=== PATIENT | female | born 1980 | race Caucasian/White ===

== ENCOUNTER 2016-06-18 13:09 | Emergency (ER) | payer OTHER ==
[~2016-06-18] VITALS: Ht 165.1 cm; Wt 86.2 kg
[~2016-06-18 13:09] MED LIST: VICODIN 5-3001 EACH PO
--- NOTE | 2016-06-18 15:49 | ED GI/GU/ABDOMINAL COMPLAINT ---
History of Present Illness General Chief Complaint: General Adult Stated Complaint: RECTAL BLEEDING Source: patient, old records Exam Limitations: no limitations Vital Signs & Intake/Output Vital Signs & Intake/Output Vital Signs Date Time Temp Pulse Resp B/P B/P Pulse O2 O2 Flow FiO2 Mean Ox Delivery Rate 06/18 1744 97.9 67 18 135/79 96 Room Air 06/18 1608 98 Room Air 06/18 1318 98.2 71 20 156/91 98 Room Air Allergies Coded Allergies: codeine (THROAT SWELLING 05/12/15) Reconcile Medications Hydrocodone/Acetaminophen (Vicodin 5-300 MG Tablet) 1 EACH TABLET 1 TAB PO Q6HR PRN PAIN Triage Note: PT PRESENTS TO ER C/O OF RECTAL BLEEDING POST BOWEL MOVEMENT. PT DENIES ANY RECTAL BLEEDING IN THE PAST AND ANY STRAINING. PT STATES SHE WAS USING THE BATHROOM AND WHEN SHE WENT TO CLEAN SHE SAW BLOOD IN THE TOILET AND ON HER TOILET PAPER. PT DENIES ABDOMINAL PAIN AND DIZZINESS. Triage Nurses Notes Reviewed? yes LMP (ages 10-50): 2 WEEKS AGO ? N Is pt currently ? No Onset: Abrupt Duration: day(s): (1), better Timing: single episode today (`) Quality/Severity: cramping Location: denies pain Radiation: no radiation Activities at Onset: none Prior Abdominal Problems: none No Modifying Factors: none Associated Symptoms: denies HPI: 35-year-old female presents emergency room after noticing blood on the toilet paper and bowel after she had a bowel movement. There was no diarrhea No history of similar episodes in the past no abdominal pain patient is otherwise without acute complaints. No dizziness lightheadedness. She denies any nausea vomiting no recent black or bloody stools she denies noting any blood in her stool prior to this episode. No chest pain shortness of breath. She is otherwise without any complaints at this time no recent trauma no vaginal bleeding or discharge no urinary complaints (SAI GOLDEN) Past History Travel History Traveled to [place] past 21 day No Medical History Any Pertinent Medical History? see below for history Hepatic: hepatitis B Surgical History Surgical History: non-contributory Psychosocial History What is your primary language Greek Tobacco Use: Quit >30 days ago Family History Hx Contributory? No (SAI GOLDEN) Review of Systems Review of Systems Constitutional: Reports: see HPI. All Other Systems: Reviewed and Negative Comments Review of systems: See HPI, All other systems negative. Constitutional, no chills no fever, no malaise HEENT: No visual changes no sore throat no congestion, Cardiovascular: No chest pain , no palpitation Skin: no rashes, no change in skin Respiratory: No dyspnea no cough no sputum GI: No nausea no vomiting, no diarrhea, no bloating/constipation : No dysuria Muscle skeletal: No joint pain, no joint swelling, no back pain, no neck pain, Neurologic: No numbness no headache Psych: No stress Heme/endocrine: No bruising no bleeding Immunology: No lymphadenopathy (SAI GOLDEN) Physical Exam Physical Exam General Appearance: well developed/nourished, no apparent distress, alert, awake Gastrointestinal: soft Comments: Well-developed well-nourished person in no acute distress HEENT: Normal EENT exam; PERRL, EOMI,. HEAD is atraumatic. moist mucous membranes. Neck: Supple, no lymphadenopathy, normal range of motion Back: Nontender, no CVA tenderness. Full range of motion Cardiovascular: Regular rate and rhythms no murmurs rubs Respiratory: No respiratory distress. Patient speaking in full complete sentences. Breath sounds clear to auscultation bilaterally: NO W/R/R Abdomen: Soft, nontender nondistended, no appreciable organomegaly. Normal bowel sounds. No rebound/guarding, RECTAL: Deferrred Extremity: No edema, full range of motion of extremities Neuro: Alert oriented x3, motor sensory normal. There were no obvious focal neurologic abnormalities. Skin: No appreciable rash on exposed skin, skin is warm and dry. Psych: Mood and affect is normal, memory and judgment is normal. Core Measures ACS in differential dx? No Severe Sepsis Present: No Septic Shock Present: No (SAI GOLDEN) Progress Differential Diagnosis: hemorrhoids, ischemic bowel, inflamm bowel dis, COLITIS, DIVERTICULITIS Plan of Care: Orders Procedure Date/time Status URINE 06/18 155 Complete COMPREHENSIVE METABOLIC PANEL 06/18 155 Complete CBC WITHOUT DIFFERENTIAL 06/18 1555 Complete Laboratory Tests 06/18/16 1604: Anion Gap 12, Estimated GFR > 60, BUN/Creatinine Ratio 12.9, Glucose 100 H, Calcium 9.5, Total Bilirubin 0.8, AST 21, ALT 35, Alkaline Phosphatase 62, Total Protein 7.8, Albumin 4.3, Globulin 3.5, Albumin/Globulin Ratio 1.2 06/18/16 1558: Urine Test NEGATIVE 06/18/161554: CBC w Diff NO MAN DIFF REQ, RBC 4.58, MCV 90.3, MCH 31.0, RDW 12.1, MPV 8.6, Gran % 61.5, Lymphocytes % 30.0, Monocytes % 6.0, Eosinophils % 1.2, Basophils % 1.3, Absolute Granulocytes 4.6, Absolute Lymphocytes 2.2, Absolute Monocytes 0.4 , Absolute Eosinophils 0.1, Absolute Basophils 0.1, PUBS MCHC 34.3 Patient denies any complaints at this time labs ordered CAT scan ordered (GERRY KATZ,SAI) Diagnostic Imaging: Viewed by Me: CT Scan. Discussed w/RAD: CT Scan. Radiology Impression: PATIENT: AKOSUA CHOU PRESENT AGE: 35 PATIENT ACCOUNT NO: [id number] : 81 LOCATION: [facility] ORDERING PHYSICIAN: SAI KATZ SERVICE DATE: 06/18/16 EXAM TYPE: CAT - CT ABD & PELVIS W/O IV CONTRAS EXAMINATION: CT ABDOMEN AND PELVIS WITHOUT CONTRAST CLINICAL INFORMATION: Colitis, diverticulitis COMPARISON: None TECHNIQUE: Multidetector volumetric imaging was performed from the superior aspect of the liver through the pubic symphysis. Sagittal and coronal reformatted images were obtained on the technologist's workstation. Findings; Lung bases are grossly clear. Upper abdomen Liver and spleen are within normal limits. The region the pancreas is unremarkable. The adrenal glands within normal limits. The kidneys are nonhydronephrotic. Normal morphology. There is no bulky adenopathy here. No free fluid. The bowel pattern is nonobstructing. In the pelvis the appendix is felt to be within normal limits. Bowel pattern appears normal. There is no free fluid. No adenopathy. IMPRESSION: No acute process. The bowel pattern is within normal limits. No suspicious fluid collection . DICTATED BY: JAY FORREST MD DATE/TIME DICTATED:06/18/161637 POT ANNEALER:RUSTY DATE/TIME TRANSCRIBED:06/18/161637 CONFIDENTIAL, DO NOT COPY WITHOUT APPROPRIATE AUTHORIZATION. <Electronically signed in Other Vendor System> SIGNED BY: JAY FORREST MD 04/26/17 1655 Initial ED EKG: none (SAI GOLDEN) Departure Departure Time of Disposition: 172 Disposition: HOME OR SELF CARE Condition: Stable Clinical Impression Primary Impression: Rectal bleeding Referrals: MATILDA CRISTOBAL,LISA Kaye PATIENT HAS NO PRIMARY CARE DR (PCP/Family) Additional Instructions: BLAND DIET, FOLLOW UP WITH ASSESSMENT TECHNICIAN DR GREY THIS WEEK. RETURN TO THE ER IF SYMPTOMS PERSIST OR ANY OTHER CONCERNS Departure Forms: Customer Survey General Discharge Information (SAI GOLDEN) PA/DIRECTOR NEWS Co-Sign Statement Statement: ED Attending supervision documentation- [] I saw and evaluated the patient. I have also reviewed all the pertinent lab results and diagnostic results. I agree with the findings and the plan of care as documented in the PA's/DIRECTOR NEWS's documentation. [X] I have reviewed the ED Record and agree with the PA's/DIRECTOR NEWS's documentation. [] Additions or exceptions (if any) to the PAs/DIRECTOR NEWS's note and plan are summarized below: [] (KYLE CRISTOBAL,MARGARITA)
[2016-06-18 16:20] LABS: ABSOLUTE BASOPHIL COUNT 0.1 /CUMM (0.0-0.2); ABSOLUTE EOSINOPHIL COUNT 0.1 /CUMM (0.0-0.7); ABSOLUTE GRANULOCYTE CT 4.6 /CUMM (1.4-6.5); ABSOLUTE LYMPH COUNT 2.2 /CUMM (1.2-3.4); ABSOLUTE MONOCYTE COUNT 0.4 /CUMM (0.10-0.60); BASOPHIL % 1.3 % (0.0-2.0); EOSINOPHIL % 1.2 % (0-5); GRANULOCYTE % 61.5 % (42.2-75.2); HEMATOCRIT 41.4 % (37-47); MEAN CORPUSCULAR HGB CONC 34.3 G/DL (33.0-37.0); MEAN CORPUSCULAR VOLUME 90.3 FL (81.0-99.0); MEAN PLATELET VOLUME 8.6 FL (7.4-10.4); PLATELET COUNT 264 /CUMM (130-400); RBC DISTRIBUTION WIDTH 12.1 % (11.5-14.5); RED BLOOD CELL CT 4.58 /CUMM (4.20-5.40); WHITE BLOOD CELL COUNT 7.4 /CUMM (4.8-10.8)
--- NOTE | 2016-06-18 16:55 | CT SCAN REPORT ---
EXAMINATION: CT ABDOMEN AND PELVIS WITHOUT CONTRAST CLINICAL INFORMATION: Colitis, diverticulitis COMPARISON: None TECHNIQUE: Multidetector volumetric imaging was performed from the superior aspect of the liver through the pubic symphysis. Sagittal and coronal reformatted images were obtained on the technologist's workstation. Findings; Lung bases are grossly clear. Upper abdomen Liver and spleen are within normal limits. The region the pancreas is unremarkable. The adrenal glands within normal limits. The kidneys are nonhydronephrotic. Normal morphology. There is no bulky adenopathy here. No free fluid. The bowel pattern is nonobstructing. In the pelvis the appendix is felt to be within normal limits. Bowel pattern appears normal. There is no free fluid. No adenopathy. IMPRESSION: No acute process. The bowel pattern is within normal limits. No suspicious fluid collection .
[2016-06-18 17:44] VITALS: BP 135/79
== END 2016-06-18 17:48 ==
LOC: ERH 13:09
PROVIDERS: Physician Assistant Medical
DX: K62.5 Hemorrhage of anus and rectum (principal)
CPT/HCPCS: 74176; 81025

== ENCOUNTER 2017-07-05 09:33 | Inpatient (IN) | payer OTHER ==
[~2017-07-05] VITALS: Ht 167.6 cm; Wt 105.7 kg
[~2017-07-05 09:33] MED LIST changes: +KEFLEX500 M1 PO
[2017-07-05 10:15] LABS: ABSOLUTE BASOPHIL COUNT 0.2 /CUMM (0.0-0.2); ABSOLUTE EOSINOPHIL COUNT 0.1 /CUMM (0.0-0.7); ABSOLUTE GRANULOCYTE CT 9.3 /CUMM (1.4-6.5); ABSOLUTE LYMPH COUNT 2.1 /CUMM (1.2-3.4); ABSOLUTE MONOCYTE COUNT 0.6 /CUMM (0.10-0.60); BASOPHIL % 1.3 % (0.0-2.0); EOSINOPHIL % 0.4 % (0-5); GRANULOCYTE % 76.1 % (42.2-75.2); HEMATOCRIT 42.4 % (37-47); MEAN CORPUSCULAR HGB 30.5 PG (27.0-31.0); MEAN CORPUSCULAR HGB CONC 33.2 G/DL (33.0-37.0); MEAN CORPUSCULAR VOLUME 91.9 FL (81.0-99.0); MEAN PLATELET VOLUME 9.1 FL (7.4-10.4); PLATELET COUNT 240 /CUMM (130-400); RBC DISTRIBUTION WIDTH 13.2 % (11.5-14.5); RED BLOOD CELL CT 4.61 /CUMM (4.20-5.40); WHITE BLOOD CELL COUNT 12.3 /CUMM (4.8-10.8)
--- NOTE | 2017-07-05 14:01 | History & Physical ---
General Information and HPI MD Statement: I have seen and personally examined AKOSUA CHOU and documented this H&P. Source of Information: patient, old records Exam Limitations: no limitations History of Present Illness: The patient is a 36 year old at 39 weeks and 4 days gestation who presented with a chief complaint of painful ctx and LOF at 9a, clr. No vb. +FM. GBS pos. AP care c/b Hep B carrier, nl LFTs, AMA. Pt desires pp tubal sterilization. Allergies/Medications Allergies: Coded Allergies: penicillin G (Intermediate, HIVES 07/05/17) codeine (THROAT SWELLING 05/12/15) Home Med list Cephalexin (Keflex) 500 MG CAPSULE 1 CAP PO BID cellulitis Hydrocodone/Acetaminophen (Vicodin 5-300 MG Tablet) 1 EACH TABLET 1 TAB PO Q6HR PRN PAIN Compliance With Home Meds: GOOD Past History director peoplesoft History : 4 Para: 2 Last Menstrual Period: 10/01/16 Estimated Delivery Date: 07/08/17 Past director peoplesoft History: non-contributory Past Pregnancies Past Pregnancies: 1 Date of Delivery: 07/20/03 Gestational Age: 36 Length of Labor: 13 Weight: 6 lb Type of Delivery: vaginal Anesthesia: epidural Place of Delivery: [facility] Complications: none Past Pregnancies: 2 Date of Delivery: 03/07/07 Gestational Age: 40 Length of Labor: 4 hr Weight: 6#5 Type of Delivery: vaginal Anesthesia: epid Place of Delivery: [place] Complications: none Medical History Neurological: NONE EENT: NONE Cardiovascular: NONE Respiratory: NONE Gastrointestinal: NONE Hepatic: NONE (carrier), hepatitis B Renal: NONE Musculoskeletal: NONE Psychiatric: NONE Endocrine: NONE Blood Disorders: NONE Cancer(s): NONE 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 No Contractions: q 3 #1 - FHR Baseline: 120 Category: 1 Estimated Weight: 3600 Presentation: vtx Patient for Induction? No Physical Exam: nad cta rrr abd soft nt gravid ext nt +1 b/l le ed Labs Blood Type & Rh: A pos Antibody Screen: neg Hct/Hgb & Platelets #1: 12.9/ 40, 270 Hct/Hgb & Platelets #2: 12.6/ 39.2, 242 Rubella: imm VDRL #1: neg VDRL #2: neg HbsAg: pos HIV #1: neg HIV #2 neg 1 Hr P Group B Strep: pos Initial Ultrasound: 11/28/16 siup 8+2 Anatomy Ultrasound: 02/24/17 nl cherry Genetic Testing: nl NT, nl cffdna Last 24 Hrs of Labs/Eleuterio: Laboratory Tests 07/05/17 1020: Urine Color Pending, Urine Clarity Pending, Urine pH Pending, Ur Specific [place] Pending, Urine Protein Pending, Urine Ketones Pending, Urine Nitrite Pending, Urine Bilirubin Pending, Urine Urobilinogen Pending, Ur Leukocyte Esterase Pending, Ur Microscopic SEDIMENT EXAMINED, Urine RBC Pending, Urine Hemoglobin Pending, Urine Glucose Pending 07/05/17 0940: CBC w Diff NO MAN DIFF REQ, RBC 4.61, MCV 91.9, MCH 30.5, MCHC 33.2, RDW 13.2, MPV 9.1, Gran % 76.1 H, Lymphocytes % 17.0 L, Monocytes % 5.2, Eosinophils % 0.4, Basophils % 1.3, Absolute Granulocytes 9.3 H, Absolute Lymphocytes 2.1, Absolute Monocytes 0.6, Absolute Eosinophils 0.1, Absolute Basophils 0.2 Assessment/Plan Assessment/Plan: 36yo P2 @ 39+ wks active labor, s/p srom, gbs pos, hep b carrier, and maternal status reassuring -admit, expectant mgmt -Ancef for gbs proph -monitoring -ansvd -npo after midnight for pp tubal As Ranked By This Provider Problem List: 1. Core Measures Venous Thromboembolism VTE Risk Factors / No Mechanical VTE Prophylaxis d/t LowRisk-No Interven Req'd No VTE Pharm Prophylaxis d/t LowRisk-No Interven Req'd
--- NOTE | 2017-07-05 14:08 | Labor & Delivery Summary ---
Delivery Summary Vaginal Delivery: Vaginal: spontaneous Episiotomy/Lacerations: Episiotomy/Lacerations: lac Type: 2nd deg Repair: 3-0 fredy Anesthesia: nesacaine local Placenta: Placenta: spontanteous, normal, 3 vessel, nuchal cord (x_) (1) Anesthesia: none Cord PH Value: v 7.36 Baby's Weight: 7#15 Apgars - 1 Min: 9 Apgars - 5 Min: 9 Additional Comments: Pt FD and pushing w/o epidural. Controlled of live female, apg 11/01. Head del JEANA with compound left hand. Mouth and nose bulb suctioned. Nuchal cord x 1 reduced. Body del w/o difficulty. Baby to mom' chest. Cord clamped and cut. 3vc plac del spont intact. 2nd deg lac repaired usual fashion w/ local. Fundus well contracted. EBL 300cc. Pt marlene well.
--- NOTE | 2017-07-06 09:01 | PN- Post Delivery/GYN ---
Subjective Subjective: feeling well eating breakfast Review of Systems Constitutional: Reports: no symptoms. Denies: chills, fever. EENTM: Denies: blurred vision, double vision, visual changes. Cardiovascular: Denies: chest pain. Respiratory: Denies: short of breath. Gastrointestinal: Denies: abdominal pain, nausea, vomiting. Neurological/Psychological: Denies: anxiety, depressed. Objective Last 24 Hrs of Vital Signs/I&O vss Physical Exam General Appearance Alert, Oriented X3, Cooperative, No Acute Distress Cardiovascular Regular Rate Lungs Clear to Auscultation Abdomen Soft Pelvic (FEMALE) Appearance Normal (lochia serosaznganous) Current Medications: Current Medications Sig/Ria Start time Last Medication Dose Route Stop Time Status Admin Acetaminophen 650 MG Q4P PRN 07/05 1400 AC PO Cefazolin Sodium 2 GM ONCE ONE 07/05 1015 DC 07/05 N/A 1 UNIT IV 07/05 1044 1000 Chloroprocaine HCl 30 ML ONCE ONE 07/05 1330 DC 07/05 SC 07/05 1331 1235 Docusate Sodium 100 MG BID PRN 07/05 1400 AC PO Ibuprofen 800 MG Q6P PRN 07/05 1400 AC 07/06 PO 0756 Lactated Ringer's 1,000 ML Q8H 07/05 1000 AC 07/05 IV 1057 Oxytocin 20 UNITS Q5H 07/05 1330 DC 07/05 Lactated Ringer's 1,000 ML IV 07/05 1829 1233 Last 24 Hrs of Labs/Eleuterio: Laboratory Tests 07/06/17 0630: CBC w Diff Pending, WBC Pending, RBC Pending, Hgb Pending, Hct Pending, MCV Pending, MCH Pending, MCHC Pending, RDW Pending, Plt Count Pending, MPV Pending 07/05/17 1020: Urine Color YEL, Urine Clarity HAZY H, Urine pH 6.5, Ur Specific [place] 1.020, Urine Protein TRACE H, Urine Ketones NEG, Urine Nitrite NEG, Urine Bilirubin NEG, Urine Urobilinogen 0.2, Ur Leukocyte Esterase TRACE H, Ur Microscopic SEDIMENT EXAMINED, Urine RBC 5-10 H, Urine WBC RARE, Ur Epithelial Cells MOD H , Urine Bacteria FEW H, Urine Hemoglobin LARGE H, Urine Glucose NEG 07/05/17 0940: CBC w Diff NO MAN DIFF REQ, RBC 4.61, MCV 91.9, MCH 30.5, MCHC 33.2, RDW 13.2, MPV 9.1, Gran % 76.1 H, Lymphocytes % 17.0 L, Monocytes % 5.2, Eosinophils % 0.4, Basophils % 1.3, Absolute Granulocytes 9.3 H, Absolute Lymphocytes 2.1, Absolute Monocytes 0.6, Absolute Eosinophils 0.1, Absolute Basophils 0.2 Assessment/Plan Assessment/Plan pt is ppd #1 had requested a PP tubal but was not NPO after midnight so will reschedual for tomorrow Problem List: 1. Attending MD Review Statement Attending Statement Attending MD Statement: examined this patient, discussed with nursing
[2017-07-06 11:20] LABS: ABSOLUTE BASOPHIL COUNT 0 /CUMM (0.0-0.2); ABSOLUTE EOSINOPHIL COUNT 0 /CUMM (0.0-0.7); ABSOLUTE LYMPH COUNT 2.2 /CUMM (1.2-3.4); ABSOLUTE MONOCYTE COUNT 0.7 /CUMM (0.10-0.60); BASOPHIL % 0.1 % (0.0-2.0); EOSINOPHIL % 0.1 % (0-5); GRANULOCYTE % 82.6 % (42.2-75.2); MEAN CORPUSCULAR HGB 31.2 PG (27.0-31.0); MEAN CORPUSCULAR HGB CONC 33.2 G/DL (33.0-37.0); MEAN PLATELET VOLUME 9.4 FL (7.4-10.4); PLATELET COUNT 226 /CUMM (130-400); RBC DISTRIBUTION WIDTH 13.7 % (11.5-14.5); RED BLOOD CELL CT 3.94 /CUMM (4.20-5.40); WHITE BLOOD CELL COUNT 16.9 /CUMM (4.8-10.8)
--- NOTE | 2017-07-07 11:02 | Operative Report ---
Operative/Inv Procedure Report Surgery Date: 07/07/17 Name of Procedure: bilateral tubal ligation Pre-Operative Diagnosis: Multiparity, desires permanent sterilization Post-Operative Diagnosis: Same Estimated Blood Loss: less than 50ml Surgeon/Rhythmic Gymnastics Coach: Aimee Leija MD Anesthesia: general endotracheal tube IV Fluids: 900 mL lactated Ringer's Specimens: Portion of the tubes Complications: None Condition: Stable Operative Indication: 36-year-old, status post who desires permanent sterilization. Risks/ benefits of procedure discussed with the patient including risk failure of 3-5 per thousand with increased risk of ectopic if occurs Operative/Procedure Note Note: The patient was taken to the operating room where general anesthesia was obtained without difficulty. Patient was prepared and draped in usual sterile fashion. A small transverse, infraumbilical skin incision was then made with the scalpel. The incision was carried down through the underlying layer fascia until the peritoneum was identified and entered. The peritoneum was noted to be free of any adhesions and the incision was then extended with the Metzenbaum scissors. The patient right fallopian tube was then identified, brought to the incision and grasp with the Fariha clamp. Tube was then followed out to the fimbria. The [place] clamp was then used to grasp the tube approximately 3 cm from the cornual region. A 3 cm segment of the tube was then double ligated with a free tie of plain gut, and excised. Good hemostasis was noted and the tube was returned to the abdomen. The left fallopian tube was then ligated, and a 3 cm segment excised in a similar fashion. Excellent hemostasis was noted, and the tube returned to the abdomen. The peritoneum and fascia was then closed in a single layer of 0 Vicryl. The skin was closed in a subcuticular fashion using 4-0 Vicryl on Alex needle. The patient tolerated the procedure well. Sponge, lap and needle counts were correct 2. The patient was taken to the recovery room in stable condition.
--- NOTE | 2017-07-07 14:09 | PN- OBGYN ---
Surgical Brief Attending Note Brief Attending Note: PPD#2 pt is resting in bed, s/p BTL AM, c/o some incisional pain, tolerate diet, viod without difficulties. PE: VSS CV RRR Lungs CTA B/L Abdomen: soft, mild tender at incision site, uterus firm, fundus below umbilicus , incisiondressing small amount blood stained. D/I, lochia mild Ext: DCT (-) A/P: 36 yo, s/p , PPD#2, s/p PP BTL 1. encourage ambulation 2. pain management as needed 3. RT PP care 4. will d/c home later today, f/u in office in 2 wks and 6 wks. precautions given, she understand.
[2017-07-07] MEDS ORDERED: IBUPROFEN800 M1 PO (14:13)
[2017-07-07] MEDS ORDERED: PERCOCET 5-3251 EACH PO (14:16)
== END 2017-07-07 17:36 | DRG 767 ==
LOC: CBCO 09:33 → GNO 09:39 → ENTRNSPT 07-07 10:56 → EDTRNSPT 07-07 11:12 → EDTRNSPTSTS 07-07 11:12 → CMPTRNSPT 07-07 11:34 → GNO 07-07 17:36
PROVIDERS: Obstetrics & Gynecology
PROC: 10E0XZZ Delivery of Products of Conception, External Approach (ICD-10-PCS; principal; 2017-07-05)
PROC: 0KQM0ZZ Repair Perineum Muscle, Open Approach (ICD-10-PCS; 2017-07-05)
PROC: 0UB70ZZ Excision of Bilateral Fallopian Tubes, Open Approach (ICD-10-PCS; 2017-07-07)
DX: O70.1 Second degree perineal laceration during delivery (principal); Z37.0 Single live birth; O98.42 Viral hepatitis complicating childbirth; B18.1 Chronic viral hepatitis B without delta-agent; O99.824 Streptococcus B carrier state complicating childbirth; Z3A.39 39 weeks gestation of pregnancy; Z88.5 Allergy status to narcotic agent; Z88.0 Allergy status to penicillin; O69.81X0 Labor and delivery complicated by cord around neck, without compression, not applicable or unspecified; Z30.2 Encounter for sterilization
CPT/HCPCS: GNOS; 36415; 81001; C9399; J0131; J0690; J1100; J1885; J2405; J7120